=== PATIENT | male | born 1960 | race Caucasian/White ===

== ENCOUNTER 2019-03-15 22:03 | Emergency (ER) | payer OTHER ==
[~2019-03-15] VITALS: Ht 177.8 cm; Wt 107.0 kg
[2019-03-15] MEDS ORDERED: XARELTO10 MG (22:32)
[2019-03-15] MEDS ORDERED: IRBESARTAN-HCT1 EAC1 (22:32)
[2019-03-15] MEDS ORDERED: FORTAMET500 MG (22:33)
[2019-03-15] MEDS ORDERED: DILTIAZEM 24HR240 MG (22:33)
[2019-03-15] MEDS ORDERED: TAMS0.4C (22:33)
== END 2019-03-16 02:37 | disposition home or self-care (01) ==
LOC: ER 22:03
DX: K40.90 Unilateral inguinal hernia, without obstruction or gangrene, not specified as recurrent (principal); R10.84 Generalized abdominal pain

== ENCOUNTER 2019-05-01 10:10 | Inpatient (IN) | payer OTHER ==
[~2019-05-01] VITALS: Ht 177.8 cm; Wt 109.8 kg
[~2019-05-01 10:10] MED LIST: DILTIAZEM 24HR240 MG; FORTAMET500 MG; IRBESARTAN-HCT1 EAC1; TAMS0.4C; XARELTO10 MG
[2019-06-07] MEDS ORDERED: ULTRAM50 MG PO (09:10)
[2019-06-07] MEDS ORDERED: TYLENOL ARTHRI650 MG PO (09:10)
[2019-06-07] MEDS ORDERED: MIRALAX17 GM PO (09:10)
[2019-06-07] MEDS ORDERED: NEURONTIN300 MG PO (09:10)
== END 2019-06-07 11:37 | disposition home or self-care (01) | DRG 351 ==
LOC: SURH 06-04 08:08 → O/R 06-04 08:08 → SURG 06-04 08:15 → SURH 06-04 14:26
PROVIDERS: ADMIT Surgery
PROC: 0WUF4JZ Supplement Abdominal Wall with Synthetic Substitute, Percutaneous Endoscopic Approach (ICD-10-PCS; 2019-06-04)
PROC: 0YU54JZ Supplement Right Inguinal Region with Synthetic Substitute, Percutaneous Endoscopic Approach (ICD-10-PCS; principal; 2019-06-04 10:45)
DX: K40.30 Unilateral inguinal hernia, with obstruction, without gangrene, not specified as recurrent (principal); K43.6 Other and unspecified ventral hernia with obstruction, without gangrene; Z99.11 Dependence on respirator [ventilator] status; I82.592 Chronic embolism and thrombosis of other specified deep vein of left lower extremity; G47.33 Obstructive sleep apnea (adult) (pediatric); N40.0 Benign prostatic hyperplasia without lower urinary tract symptoms; E11.9 Type 2 diabetes mellitus without complications; E66.01 Morbid (severe) obesity due to excess calories; I10 Essential (primary) hypertension; Z79.01 Long term (current) use of anticoagulants; Z79.4 Long term (current) use of insulin

== ENCOUNTER 2019-10-22 15:27 | Emergency (ER) | payer OTHER ==
[~2019-10-22] VITALS: Ht 180.3 cm; Wt 112.0 kg
[~2019-10-22 15:27] MED LIST changes: +MIRALAX17 GM PO; +NEURONTIN300 MG PO; +TYLENOL ARTHRI650 MG PO; +ULTRAM50 MG PO
[2019-10-22] MEDS ORDERED: DOLOGEN CAPLET1 EACH PO (20:03)
[2019-10-22] MEDS ORDERED: LEVAQUIN750 MG PO (20:03)
[2019-10-22] MEDS ORDERED: IPRAT-ALBUT 0.5-3 ML IH (20:03)
== END 2019-10-22 20:17 | disposition home or self-care (01) ==
LOC: ER 15:27
DX: J06.9 Acute upper respiratory infection, unspecified (principal)

== ENCOUNTER 2025-03-12 08:47 | Emergency (ER) | payer OTHER ==
[~2025-03-12] VITALS: Ht 177.8 cm; Wt 94.8 kg
[~2025-03-12 08:47] MED LIST changes: +DOLOGEN CAPLET1 EACH PO; +IPRAT-ALBUT 0.5-3 ML IH; +LEVAQUIN750 MG PO
[2025-03-12 10:14] LABS: BASO % 0.8 % (0.1-1.2); EOS # 0.22 (0.04-0.54); EOS % 2.9 % (0.7-7.0); LYMPH # 0.58 (1.18-3.74); LYMPH % 7.7 % (19.3-53.1); MEAN PLATELET VOLUME 9.60 fl (9.4-12.4); MONO # 0.58 (0.24-0.82); MONO % 7.7 % (4.7-12.5); NEUT # 6.08 (1.56-6.13); NEUT % 80.8 % (34.0-71.1); RED CELL DISTRIBUTION WIDTH 12.0 % (11.6-14.4)
[2025-03-12 11:21] LABS: BUN CREA RATIO 18.0 (7.0-25.0); CREATININE SERUM 0.87 mg/dL (0.70-1.30); GFR 88.06; GLUCOSE FASTING 133.0 mg/dL (65-100); OSMOLALITY SERUM 286.0 MOSM/KG (275-295)
== END 2025-03-12 13:46 | disposition home or self-care (01) ==
LOC: ER 08:47
PROVIDERS: General Practice
DX: I82.431 Acute embolism and thrombosis of right popliteal vein (principal); I87.2 Venous insufficiency (chronic) (peripheral); E11.9 Type 2 diabetes mellitus without complications; Z79.84 Long term (current) use of oral hypoglycemic drugs; Z85.46 Personal history of malignant neoplasm of prostate